=== PATIENT | female | born 1995 | race Caucasian/White ===

== ENCOUNTER 2018-02-14 13:40 | Observation (INO) | payer SELFPAY ==
[2018-02-14 14:15] VITALS: BP 114/59
[2018-02-14] MEDS ORDERED: PREN1TAB80 PO (14:30)
== END 2018-02-14 17:40 | disposition home or self-care (01) ==
LOC: EMS 13:44 → 4S 13:55
PROVIDERS: ADMIT Obstetrics & Gynecology; ATTEND Obstetrics & Gynecology
DX: O26.893 Other specified pregnancy related conditions, third trimester (principal); R10.2 Pelvic and perineal pain; Z3A.28 28 weeks gestation of pregnancy
CPT/HCPCS: 59025; 76811; 80307 ×8; G0378

== ENCOUNTER 2018-03-12 19:00 | Observation (INO) | payer SELFPAY ==
[~2018-03-12] VITALS: Ht 162.6 cm; Wt 111.1 kg
[~2018-03-12 19:00] MED LIST: PREN1TAB80 PO
[2018-03-12 20:50] VITALS: BP 123/71
== END 2018-03-12 23:00 | disposition home or self-care (01) ==
LOC: 4S 19:00
PROVIDERS: ADMIT Obstetrics & Gynecology; ATTEND Obstetrics & Gynecology
DX: O26.893 Other specified pregnancy related conditions, third trimester (principal); R10.33 Periumbilical pain; O40.3XX0 Polyhydramnios, third trimester, not applicable or unspecified; Z3A.31 31 weeks gestation of pregnancy
CPT/HCPCS: 59025; 76805; G0378